=== PATIENT | female | born 1965 | race Caucasian/White ===

== ENCOUNTER 2017-12-02 13:32 | Emergency (ER) | payer OTHER ==
[2017-12-02] MEDS: ACETAMINOPHEN 500 MG TAB PO (15:32)
[2017-12-02 15:33] LABS: URINE PH (Dip) POC 5.5 (5.0-8.5)
[2017-12-02 15:33] LABS: URINE BLOOD (Dip) POC Trace-lysed (NEGATIVE); URINE GLUCOSE (Dip) POC Negative (NEGATIVE); URINE KETONES (Dip) POC Negative (NEGATIVE); URINE LEUKOCYTE EST (Dip) POC Negative (NEGATIVE); URINE NITRITE (Dip) POC Negative (NEGATIVE); URINE TOTAL PROTEIN POC Negative (NEGATIVE)
[2017-12-02] MEDS: KETOROLAC 30 MG INJ IM (15:33)
== END 2017-12-02 17:56 | disposition home or self-care (01) ==
LOC: FTE 13:32
DX: J06.9 Acute upper respiratory infection, unspecified (principal)
CPT/HCPCS: 81003; 87400; 87880; 96372; 99284-25